=== PATIENT | female | born 1950 | race Caucasian/White ===

== ENCOUNTER → 2017-08-09 | Outpatient (CLI) | payer MEDICARE ==
--- NOTE | 2017-08-09 14:16 | KCIC ---
Carotid Doppler ultrasound INDICATION: Amaurosis fugax.. COMPARISON: None are available TECHNIQUE: Color, grayscale and doppler ultrasound images obtained of the carotid system bilaterally. Percent stenosis is estimated using criteria that correlates with NASCET methodology. FINDINGS: Peak systolic velocities are as follows in cm/s: Right Carotid System: CCA PSV: 100 ICA PSV: 103 ICA EDV: 17 ECA PSV: 133 ICA/CCA Ratio 1.03 Mild atherosclerotic plaque is identified. Right vertebral artery is patent with normal direction of flow. Left Carotid System: CCA PSV: 84 ICA PSV: 93 ICA EDV: 20 ECA PSV: 150 ICA/CCA Ratio 1.11 Mild mural plaquing is identified, greatest at the proximal internal carotid artery. Left vertebral artery is patent with normal direction of flow. IMPRESSION: 1. Mild elevation by external carotid artery velocities could indicate mild stenosis. 2. No evidence of hemodynamically significant stenosis of the internal carotid arteries. Electronically signed by: Carlos Lei MD (08/09/2017 2:13 PM) [facility]
== END | disposition home or self-care (01) ==
LOC: KCIC US 12:52
PROVIDERS: ATTEND Family Medicine
DX: G45.3 Amaurosis fugax (principal); I70.8 Atherosclerosis of other arteries
CPT/HCPCS: 93880

== ENCOUNTER → 2018-06-26 | Outpatient (CLI) | payer MEDICARE ==
--- NOTE | 2018-07-04 16:50 | KCIC ---
Bilateral digital screening mammograms with 3-D tomosynthesis: Reason for examination: Routine screening. Comparison is made to previous study dated 10/02/2013. Bilateral mammograms in CC and oblique projections were obtained with 2-D imaging and 3-D tomosynthesis imaging on a Siemens Inspiration unit and reviewed on the workstation. Interpretation was made with the benefit of CAD. The skin and nipples show no abnormalities. No abnormal axillary lymph nodes are seen. The breast parenchyma is heterogeneously dense. (Breast density: Category C.) There are no dominant masses, suspicious calcifications or architectural distortion. Increasing benign secretory type calcifications are present. Impression: No evidence of malignancy. Recommend routine screening. Your patient's mammogram demonstrates that she has dense breast tissue (breast density category C or D), which could hide abnormalities, and if she has other risk factors for breast cancer that have been identified, she might benefit from supplemental screening tests that may be suggested by you as her ordering physician. Dense breast tissue, in and of itself, is a relatively common condition. Therefore, this information is not provided to cause undue concern, but rather to raise your awareness and to promote discussion with your patient regarding the presence of other risk factors, in addition to dense breast tissue. Your patient's mammography results will be sent to her. BI-RAD Category 2: Benign. "Our facility is accredited by the [employer] Mammography Program." This patient's information has been entered into a reminder system for the patient to be notified with the results of her examination and a target date for the next mammogram. Electronically signed by: Ludmila Tomlinson MD (07/04/2018 4:46 PM) [facility]
== END | disposition home or self-care (01) ==
LOC: KCIC MAMMO 10:54
PROVIDERS: ATTEND Family Medicine
DX: Z12.31 Encounter for screening mammogram for malignant neoplasm of breast (principal)
CPT/HCPCS: 77063; 77067

== ENCOUNTER → 2018-07-18 | Outpatient (CLI) | payer MEDICARE ==
--- NOTE | 2018-07-18 17:15 | KCIC ---
Lumbar spine radiograph July 18, 2018 INDICATION: Radicular low back pain. COMPARISON: None available TECHNIQUE: 3 views of the lumbosacral spine are provided. FINDINGS: There is levoconvex scoliosis of the lumbar spine. [place] levocurvature is noted at L3-L4. There is moderate to advanced disc height loss at L3-L4 and L4-L5. Colostomy clips are identified in the right upper quadrant. Moderate anterior marginal ossified ptosis is present at L4-L5 and L3-L4. Posterior osteophytosis is noted at L4-L5 and L5-S1. There is no significant spondylolisthesis. Atherosclerotic changes of the abdominal aorta present. IMPRESSION: There is levoconvex scoliosis of the lumbar spine with associated moderate to advanced degenerative disc disease. Electronically signed by: Natalia Lr MD (07/18/2018 5:12 PM) [facility]
== END | disposition home or self-care (01) ==
LOC: KCIC 13:37
PROVIDERS: ATTEND Family Medicine
DX: M41.86 Other forms of scoliosis, lumbar region (principal); M51.36 Other intervertebral disc degeneration, lumbar region; I70.0 Atherosclerosis of aorta; M25.78 Osteophyte, vertebrae
CPT/HCPCS: 72100

== ENCOUNTER → 2018-08-18 | Outpatient (CLI) | payer MEDICARE ==
--- NOTE | 2018-08-18 11:16 | KCIC ---
MRI Lumbar Spine without contrast History: Low back pain getting worse the last few months, bilateral lower extremity pain and numbness Technique: Multiplanar, multi sequential noncontrast MR imaging was performed of the lumbar spine. Contrast: None Comparison: None Findings: Lumbar vertebral body stature is overall preserved. AP alignment is within normal limits. There is more advanced degenerative disc disease at L4-5, to a somewhat lesser degree at L3-4 and L5-S1, minimal disc desiccation at more superior levels. Conus terminates at L1. There is no significant marrow edema. There are posterior and anterior annular tears L4-5 and also posteriorly at L3-4. There is degenerative endplate change greatest L4-5. There is mild lumbar levoscoliosis centered about L4. L1-L2: This level was not included on the axial images. There is a shallow posterior bulge without significant spinal stenosis. L2-L3: There is very shallow disc osteophyte complex and protrusion in the inferior left neural foramen and far left lateral recess. Spinal canal and neural foramina are adequate. L3-L4: There is minimal disc osteophyte complex and bulge. Neural foramina and spinal canal are adequate. There is minimal buckling of the ligamentum flavum. L4-L5: There is broad posterior disc osteophyte complex, also what likely represents a partially calcified extrusion greatest centrally. There is mild left lateral recess stenosis. There is mild to moderate narrowing left neural foramen by facet and disc osteophyte complex, right neural foramen overall adequate. L5-S1: There is minimal disc osteophyte complex and shallow protrusion, near the descending left S1 nerve root without displacement or significant spinal stenosis. Right neural foramen is adequate. There is mild narrowing greater distally of the left neural foramen in part by minimal disc osteophyte complex, also near the extraforaminal left L5 nerve root. Impression: 1. There is more advanced degenerative disc disease L4-5 and to a somewhat lesser degree L3-4 and L5-S1 with spondylosis at the same levels. There is mild left lateral recess stenosis at L4-5. Disc osteophyte complex and shallow protrusion L5-S1 is near descending left S1 nerve root without significant displacement. There is [id number] narrowing of the left L4-5 neural foramen, to lesser degree on the left at L5-S1. Electronically signed by: Krunal Ortiz MD (08/18/2018 11:13 AM) [facility]
== END | disposition home or self-care (01) ==
LOC: KCIC MRI 09:55
PROVIDERS: ATTEND Family Medicine
DX: M51.16 Intervertebral disc disorders with radiculopathy, lumbar region (principal); M85.88 Other specified disorders of bone density and structure, other site; M47.27 Other spondylosis with radiculopathy, lumbosacral region; M48.061 Spinal stenosis, lumbar region without neurogenic claudication; N18.3 Chronic kidney disease, stage 3 (moderate); Z96.652 Presence of left artificial knee joint
CPT/HCPCS: 72148

== ENCOUNTER → 2018-09-19 | Outpatient (CLI) | payer MEDICARE ==
[~2018-09-19] MED LIST: AMLO5TAB7 PO; GLIM4TAB2 PO; IOHEXOL 180 MG/ML 10 ML VIAL. ONE; LATA2.5D3 EACHEYE; METF500T16 PO; PIOG30TA62 PO; PRAV40TA2 PO; TRIA1CAP3 PO; methylPREDNISolone ACETATE 40 MG/ML VIAL. ONE; methylPREDNISolone ACETATE 80 MG/ML VIAL. ONE
--- NOTE | 2018-09-20 02:42 | PAIN ---
DATE OF SERVICE: 09/19/2018 INITIAL CONSULTATION FOR PAIN CLINIC CHIEF COMPLAINT: Low back and left lower extremity pain. HISTORY OF PRESENT ILLNESS: This is a 68-year-old female who presents with history of pain in the low back, bilateral lower extremities, mostly in the left side, posterior gluteus, posterior thigh, posterior knee, posterior calf for many years but it is worse since May of this past summer. The patient reports no specific injury or action that she is aware of. This pain is beginning to get worse on its own. Describes as sharp, throbbing, shooting, radiating primarily in the legs but also in the low back, more on the left side, worse with standing, difficulty getting out of bed to chair, especially legs are worse at night with the pain. The patient is currently doing physical therapy, which helped a small amount, maybe 10%. The patient is slightly better. The patient reports it awakens her from sleep occasionally but not every night, does not affect her bowel or bladder control but does affect her ability to walk. She uses a cane, walker or an electric scooter when they are available for. The patient again is going to physical therapy, also chiropractic treatment and does exercise and does it daily and stretching daily. The patient tried Aleve as well as hydrocodone and Tylenol, which decreased the pain slightly and had not had any for 1-2 weeks. The patient did have an MRI scan of the lumbar spine, which shows a more advanced degenerative disk disease L4-L5 and to a somewhat lesser degree at L3-L4 and L5-S1 with spondylosis at the same levels with mild left lateral recess stenosis at L4-L5, disk osteophyte complex and shallow protrusion at L5-S1 near the descending left S1 nerve root without significant displacement with [id number] narrowing of the left L4-L5 neural foramen to a lesser degree on the left at L5 and S1. The patient rates her disability rate from 0-10, 10 being the worst, is an 8 with family and home responsibilities, recreation, sexual behavior, 10 with social activity, 6 with self-care and 5 with life support activities. The patient reports no complete loss of motor function but significant fatigability, especially in the left leg with any type of standing, walking, especially when standing from a sitting position. PAST MEDICAL HISTORY: Significant for type 2 diabetes, shortness of breath with exertion, hypertension, arthritis and stage 3 kidney disease. PAST SURGICAL HISTORY: Previous surgeries include bilateral knee replacements, left ankle fracture from previous injury in the past and laparoscopic cholecystectomy. CURRENT MEDICATIONS: Include amlodipine, triamterene, latanoprost, pravastatin, pioglitazone, glimepiride and metformin. The patient is also taking Zyrtec. ALLERGIES: The patient is allergic to SULFA, which causes hives. FAMILY HISTORY: Significant for hypertension. SOCIAL HISTORY: The patient does not smoke. Drinks alcohol only very rarely less than 3 times a year and is not using any illegal, illicit or recreational drugs. She is single. Lives locally in [place], [place]. REVIEW OF SYSTEMS: The patient's review of systems is positive for those items mentioned in history of present illness. All systems reviewed and otherwise negative. It is complete, full and well documented on the patient's chart. PHYSICAL EXAMINATION: VITAL SIGNS: The patient's blood pressure is 156/92, pulse 114, respirations 18 and temperature 98.2 degrees Fahrenheit. Height is 5 feet 7 inches and weight is 330 pounds. GENERAL: The patient is awake, alert, oriented, appropriate and very pleasant demeanor. HEENT: Head shows normocephalic and atraumatic. Extraocular movements are intact and symmetrical. Oral cavity: Mucous membranes moist and pink. Dentition intact. NECK: Shows anterior throat supple without palpable lymphadenopathy noted. Swallow reflex symmetrical. CHEST: Shows normal on inspection. Breath sounds clear to auscultation bilaterally. HEART: Shows S1 and S2 clear. No murmurs auscultated. ABDOMEN: Soft, nontender and nondistended. No palpable organomegaly is noted. No rebound or guarding demonstrated. BACK: Shows spine grossly in the midline. Normal appearing thoracic kyphosis, slight flattening of the lumbar lordotic curvature. Lumbar paraspinous muscle shows symmetrical on inspection and on palpation shows some moderate tenderness but only diffusely without significant radiation and no trigger points. The patient has no tenderness over the spinous processes, sacrum or sacroiliac regions. The patient has good rotational motion of the lumbar spine, both 10 degrees, right and left lateral as well as extension greater than 10 degrees, forward flexion 45 degrees without significant pain reported. EXTREMITIES: Lower extremities show deep tendon reflexes 1+ in the patellar and tendo-calcaneus tendons. Motor exam is approximately 4 on a scale of 5 with left dorsiflexion, extension, quadriceps and hamstring flexion and 5/5 on the right. The patient does have positive straight leg raise on the left at about 35 degrees, which is decreased with knee flexion, right side is negative. Gaenslen's and Darci's maneuvers are grossly negative bilaterally. The patient has well-healed surgical scars over the bilateral knees. The patient is able to stand, stand, has difficulty standing from a seated position significantly, depends on the arms of her chair to help support her body as she lifts herself up. She is walking with a shuffling gait, somewhat wide stance and has a cane with her. She is holding her right hand today as well. The patient's skin shows warm and dry, good turgor. No edema. No sores or rashes. IMPRESSION: 1. This is a 68-year-old female with long history of low back, left lower extremity pain, worse over the past 4 months or so, status post physical therapy with only mild decrease in pain. 2. MRI scan of the lumbar spine as noted. 3. Obesity. 4. Arthritis. 5. Hypertension. 6. Type 2 diabetes. PLAN: Options were discussed with the patient including conservative medical management, physical therapy, interventional techniques. She would like to pursue interventional techniques. We discussed lumbar epidural steroid injection using description as well as anatomical models to describe the procedure. Risks were then discussed including, but not limited to bleeding, infection, possibility of epidural hematoma and subsequent neurological compromise, dural puncture, headaches, spinal cord and/or nerve damage, side effects of steroid medication and poor results regarding pain control. The patient understands and wished to proceed. The patient will return to the clinic in approximately 2 weeks for followup, was counseled as to return appointment, activity level and side effects to be aware of. DIAGNOSES: Lumbar radiculopathy with lumbar degenerative disk disease and lumbar spinal stenosis. PROCEDURE: Lumbar epidural steroid injection, translaminar approach at L5-S1 level using C-arm fluoroscopic guidance under sterile prep and drape using local anesthetic. MEDICATION INJECTED: A total of 120 mg Depo-Medrol plus 10 mL of preservative-free normal saline and 2 mL of Isovue for contrast. CONDITION AT DISCHARGE: Stable. The patient tolerated the procedure well and had no complications. PAULA ARCE MD DR: MADELIN/heri JOB#: [id number] / [id number] LINA Irby MD
== END | disposition home or self-care (01) ==
LOC: PNCL 13:02
PROVIDERS: ATTEND Anesthesiology
DX: M51.16 Intervertebral disc disorders with radiculopathy, lumbar region (principal); M47.27 Other spondylosis with radiculopathy, lumbosacral region; M48.061 Spinal stenosis, lumbar region without neurogenic claudication; M19.90 Unspecified osteoarthritis, unspecified site; E66.9 Obesity, unspecified; I12.9 Hypertensive chronic kidney disease with stage 1 through stage 4 chronic kidney disease, or unspecified chronic kidney disease; E11.22 Type 2 diabetes mellitus with diabetic chronic kidney disease; N18.3 Chronic kidney disease, stage 3 (moderate); Z98.890 Other specified postprocedural states; Z79.899 Other long term (current) drug therapy; Z96.652 Presence of left artificial knee joint
CPT/HCPCS: 62323; J1030; J1040; Q9965

== ENCOUNTER → 2018-10-04 | Outpatient (CLI) | payer MEDICARE ==
--- NOTE | 2018-10-04 20:17 | PAIN ---
DATE OF SERVICE: 10/04/2018 PROGRESS NOTE FOR PAIN CLINIC DIAGNOSES: Lumbar radiculopathy with lumbar spinal stenosis and lumbar degenerative disk disease. HISTORY OF PRESENT ILLNESS: The patient is a 68-year-old female who returns for followup status post lumbar epidural steroid injection x 1. The patient reports doing very well with about a 30% improvement overall. The patient reports no new motor or sensory deficits and no new bowel or bladder incontinence or other complaints. Still significant pain in the low back and left lower extremity. The left lower extremity; however, is doing significantly better than it was. The patient reports it is much more comfortable. She is increasing her activity, walking distances and household activities where she has been very active over the past 2 weeks. The patient reports her pain was decreased and she was doing more and more but did recall some of the pain returned in her left low back but without significant radiation into the left lower extremity as it was. The patient reports the pain is 6 on a scale 10 at its worst, 4 on average, 4 at its least and is a 4 today. The patient reports it is stabbing, on and off in intensity in the low back, again primarily. The patient reports she is sleeping well at night; sitting does not bother her and mostly with standing and walking for about 5 minutes, the pain begins to return. PHYSICAL EXAMINATION: VITAL SIGNS: The patient's blood pressure 154/83, pulse 114, respirations 18 and temperature is 98.0 degrees Fahrenheit. Height is 5 feet 6 inches and weight is 334 pounds. GENERAL: The patient is awake, alert, oriented, appropriate and very pleasant demeanor. HEENT: Head shows normocephalic and atraumatic. Extraocular movements are intact and symmetrical. Oral cavity: Mucous membranes moist and pink. Dentition is intact. NECK: Shows anterior throat supple without palpable lymphadenopathy noted. Swallow reflex is symmetrical. CHEST: Shows normal with inspection. Breath sounds are clear to auscultation bilaterally. HEART: Shows S1 and S2 clear. No murmurs auscultated. ABDOMEN: Soft, nontender and nondistended. Obese but no rebound or guarding demonstrated. No organomegaly palpated. EXTREMITIES: The patient's lower extremities show deep tendon reflexes at 1+ in the patellar and tendo-calcaneus tendons. Motor exam is 4/5 with left dorsiflexion and extension, 5/5 on the right. Peripheral pulses are 1+ posterior tibial. No peripheral edema is noted bilaterally. Options were discussed with the patient. The patient's old chart was reviewed as well as her current medication regimen updated. Current review of systems updated today as well. We will proceed with a second in the series of lumbar epidural steroid injection today with fluoroscopic guidance. Risks were again discussed including, but not limited to bleeding, infection, possibility of epidural hematoma, subsequent neurologic compromise, dural punctures, headaches, spinal cord and/or nerve damage, side effects of steroid medication and poor results regarding pain control. The patient understands and wished to proceed. The patient will return to the clinic in approximately 2 weeks for followup, was counseled as to return appointment, activity level and side effects to be aware of. DIAGNOSES: Lumbar radiculopathy with lumbar degenerative disk disease and lumbar spinal stenosis. PROCEDURE: Lumbar epidural steroid injection, translaminar approach, L5-S1 level using C-arm fluoroscopic guidance under sterile prep and drape using local anesthetic. MEDICATION INJECTED: A total of 120 mg Depo-Medrol plus 10 mL of preservative-free normal saline and 2 mL of Isovue for contrast. CONDITION AT DISCHARGE: Stable. The patient tolerated the procedure well and had no complications. PAULA ARCE MD DR: MADELIN/nts JOB#: [id number] / [id number]
== END | disposition home or self-care (01) ==
LOC: PNCL 13:22
PROVIDERS: ATTEND Anesthesiology
DX: M51.16 Intervertebral disc disorders with radiculopathy, lumbar region (principal); M48.061 Spinal stenosis, lumbar region without neurogenic claudication; M47.27 Other spondylosis with radiculopathy, lumbosacral region; E66.9 Obesity, unspecified; I12.9 Hypertensive chronic kidney disease with stage 1 through stage 4 chronic kidney disease, or unspecified chronic kidney disease; E11.22 Type 2 diabetes mellitus with diabetic chronic kidney disease; N18.3 Chronic kidney disease, stage 3 (moderate); M19.90 Unspecified osteoarthritis, unspecified site; Z79.899 Other long term (current) drug therapy; Z98.890 Other specified postprocedural states; Z96.652 Presence of left artificial knee joint
CPT/HCPCS: 62323; J1030; J1040; Q9965

== ENCOUNTER → 2019-09-03 | Outpatient (CLI) | payer MEDICARE ==
[~2019-09-03] MED LIST changes: +AMLO5TAB10 PO; -AMLO5TAB7 PO; -GLIM4TAB2 PO; +GLIM4TAB4 PO; -IOHEXOL 180 MG/ML 10 ML VIAL. ONE; -methylPREDNISolone ACETATE 40 MG/ML VIAL. ONE; -methylPREDNISolone ACETATE 80 MG/ML VIAL. ONE
--- NOTE | 2019-09-03 08:54 | KCIC ---
ABDOMEN COMPLETE History: Abdominal pain, diabetes Comparison: None. Findings: Multiple sonographic images of the abdomen are submitted. There is diffuse coarsening of the hepatic echotexture. Right lobe of the liver measured 18.9 cm longitudinal. There has been cholecystectomy. Common bile duct measures about 1.3 cm. Right kidney measured 9.7 x 4.7 x 5.4 cm, no hydronephrosis. There is relative increased echogenicity of the right renal parenchyma and areas of cortical thinning. Abdominal aortic caliber is within normal limits up to about 2 cm at the proximal segment, mid and distal segments obscured by bowel gas on this exam. Pancreas is poorly seen due to bowel gas. Spleen measured about 12 cm. Left kidney measured 10.7 x 4.5 x 4.4 cm, no hydronephrosis. Impression: 1. There has been cholecystectomy. Common bile duct is dilated about 1.3 cm although sometimes can be normally seen after cholecystectomy, correlation with laboratory findings advised. 2. There is mild atrophy of the right kidney. 3. Midline structures are poorly seen due to bowel gas. 4. There is hepatic steatosis. Electronically signed by: Krunal Ortiz MD (09/03/2019 8:51 AM) [facility]
== END | disposition home or self-care (01) ==
LOC: KCIC US 07:58
PROVIDERS: ATTEND Family Medicine
DX: K76.0 Fatty (change of) liver, not elsewhere classified (principal); N26.1 Atrophy of kidney (terminal); K83.8 Other specified diseases of biliary tract; B02.9 Zoster without complications; I10 Essential (primary) hypertension; E11.9 Type 2 diabetes mellitus without complications; Z90.49 Acquired absence of other specified parts of digestive tract
CPT/HCPCS: 76700

== ENCOUNTER → 2020-08-15 | Outpatient (CLI) | payer MEDICARE ==
[2020-08-07 12:24] VITALS: BP 148/57
[~2020-08-15] MED LIST changes: -GLIM4TAB4 PO; +GLIM4TAB8 PO
--- NOTE | 2020-08-15 12:09 | RAD ---
PET W CT SKULL TO MIDTHIGH Clinical Indication: Lung nodule initial staging Comparison: None. Technique: Patient blood glucose at the time of injection is 187 mg/dL. The patient was administered 14.5 mCi of F-18 FDG intravenously. The patient rested quietly during a 60 minute uptake period. The patient was unable to tolerate the PET scanner table. No CT or PET images were obtained. IMPRESSION: 1. Incomplete examination due to patient's inability to tolerate the study. PET agent was injected. No images were obtained. Electronically signed by: Te Zeng DO (08/15/2020 12:06 PM) [id number]
== END ==
LOC: PETSC 08:58
PROVIDERS: ATTEND Internal Medicine Pulmonary Disease
DX: C80.1 Malignant (primary) neoplasm, unspecified (principal); R91.1 Solitary pulmonary nodule
CPT/HCPCS: 78815; A9552